=== PATIENT | male | born 1970 | race Caucasian/White ===

== ENCOUNTER 2017-11-26 06:54 | Emergency (ER) | payer BC ==
[~2017-11-26] VITALS: Ht 175.3 cm; Wt 83.9 kg
[~2017-11-26 06:54] MED LIST: CYCL10TA9 PO; GENT3.5O18 OD; HYDR1TAB PO; IBP600T1 PO; MPR22T TP; NAPR-243 PO; SULF-222 PO; SULF1TAB35 PO; SULF1TAB38 PO; TRM50T PO
[2017-11-26] MEDS ORDERED: NS IV 1000 ML 1,000 ML IV SCH (07:07)
[2017-11-26] MEDS ORDERED: RT-ALBUTEROL/IPRATROPIUM 3 ML (DUONEB) VIAL INH ONE (07:15)
[2017-11-26 07:22] LABS: BASOPHILS % (AUTO) 1 % (0-10); EOSINOPHILS # (AUTO) 0.2 10^3/uL (0.0-0.3); EOSINOPHILS % (AUTO) 3 % (0-10); HEMATOCRIT 45 % (40-54); HEMOGLOBIN 15.9 G/DL (13.3-17.7); LYMPHOCYTES # (AUTO) 1.9 X 10^3 (1.0-4.0); LYMPHOCYTES % (AUTO) 31 % (12-44); MEAN CORPUSCULAR HEMOGLOBIN 31 PG (25-34); MEAN CORPUSCULAR HGB CONC 35 G/DL (32-36); MEAN CORPUSCULAR VOLUME 87 FL (80-99); MEAN PLATELET VOLUME 9.6 FL (7.4-10.4); MONOCYTES # (AUTO) 0.8 X 10^3 (0.0-1.0); MONOCYTES % (AUTO) 13 % (0-12); NEUTROPHILS # (AUTO) 3.2 X 10^3 (1.8-7.8); NEUTROPHILS % (AUTO) 53 % (42-75); PLATELET COUNT 203 10^3/uL (130-400); RED BLOOD COUNT 5.14 10^6/uL (4.35-5.85); RED CELL DISTRIBUTION WIDTH 13.2 % (10.0-14.5); WHITE BLOOD COUNT 6.1 10^3/uL (4.3-11.0)
[2017-11-26] MEDS ORDERED: ONDANSETRON 4 MG/2 ML (SDV) Z0FRAN IVP ONE (07:45)
[2017-11-26 07:47] LABS: ALANINE AMINOTRANSFERASE 47 U/L (0-55); ALKALINE PHOSPHATASE 102 U/L (40-136); BILIRUBIN,TOTAL 0.9 MG/DL (0.1-1.0); BUN/CREATININE RATIO 18; CALCIUM 8.1 MG/DL (8.5-10.1); CARBON DIOXIDE 25 MMOL/L (21-32); CHLORIDE 108 MMOL/L (98-107); CREATININE SERUM 0.91 MG/DL (0.60-1.30); GFR ESTIMATED > 60; GLUCOSE 96 MG/DL (70-105); MAGNESIUM 2.6 MG/DL (1.8-2.4); POTASSIUM 3.8 MMOL/L (3.6-5.0); SODIUM 139 MMOL/L (135-145); TOTAL PROTEIN 6.3 GM/DL (6.4-8.2)
--- NOTE | 2017-11-26 07:52 | ED General ---
General Chief Complaint: Cough/Cold/Flu Symptoms Stated Complaint: DOES NOT FEEL GOOD,LIGHT HEADED,BOLAÑOS,COUGH,POSS FEVE Nursing Triage Note: PT AMBULATES TO ROOM 6 PT CO OF COLD COUGH AND FLU SX SINCE TUESDAY, PT STATES HAS HAD CHILLS AT TIMES HAS PROD COUGH. STATES GRANDSON SICK LAST WEEK. PT CO OF SOME CHEST PRESSURE W COUGH HAS HAD OCC DIARRHEA Nursing Sepsis Screen: No Definite Risk Source of Information: Patient Exam Limitations: No Limitations History of Present Illness Date Seen by Provider: Nov 26, 2017 Time Seen by Provider: 07:00 Initial Comments This 47 year old gentleman presents to the ER with cough, lightheadedness, chest tightness, nausea, vomiting and diarrhea since November 23. He could not sleep last night. He has little health history and is a nonsmoker. He has chills but no fever. Allergies and Home Medications Allergies Coded Allergies: SHARLENEANo Known Allergies (Unverified Allergy, Mild, 03/21/07) Home Medications Albuterol Sulfate 1 Puff Puff, 1-4 PUFF IH Q4H PRN for SHORTNESS OF BREATH 1 PUFF = 90 MCG Prescribed by: STEPHANIE MAURER on 11/26/17 0824 Patient Home Medication List Home Medication List Reviewed: Yes Constitutional: see HPI EENTM: no symptoms reported Respiratory: see HPI Cardiovascular: see HPI Gastrointestinal: see HPI Genitourinary: no symptoms reported Musculoskeletal: no symptoms reported Skin: no symptoms reported Psychiatric/Neurological: No Symptoms Reported Hematologic/Lymphatic: No Symptoms Reported Immunological/Allergic: no symptoms reported Past Jucaiqy-Uwujji-Ghhpop Hx Patient Social History Alcohol Use: Denies Use Recreational Drug Use: No Smoking Status: Never a Smoker Recent Foreign Travel: No Contact w/Someone Who Travel: No Recent Infectious Disease Expo: No Recent Hopitalizations: No Physical Abuse: No Sexual Abuse: No Immunizations Up To Date Tetanus Booster (TDap): Less than 5yrs Date of Influenza Vaccine: Jun 29, 2011 Seasonal Allergies Seasonal Allergies: No Surgeries History of Surgeries: No Respiratory History of Respiratory Disorde: No Cardiovascular History of Cardiac Disorders: No Neurological History of Neurological Disord: No Reproductive System Hx Reproductive Disorders: No Gastrointestinal History of Gastrointestinal Di: No Musculoskeletal History of Musculoskeletal Dis: No Endocrine History of Endocrine Disorders: No HEENT History of HEENT Disorders: No Cancer History of Cancer: No Psychosocial History of Psychiatric Problem: No Suicide Risk Score: 0 Integumentary History of Skin or Integumenta: No Blood Transfusions History of Blood Disorders: No Adverse Reaction to a Blood Tr: No Family Medical History Significant Family History: No Pertinent Family Hx Physical Exam Vital Signs Vital Signs - First Documented 11/26/17 07:10 Temp 96.6 Pulse 80 Resp 16 B/P (MAP) 139/96 (110) Pulse Ox 99 O2 Delivery Room Air Capillary Refill : Less Than 3 Seconds General Appearance: WD/WN, Mild Distress HEENT: PERRL/EOMI, Normal ENT Inspection, Pharynx Normal, TM Abnormal (R) ( cerumen impaction) Neck: Normal Inspection Respiratory: Lungs Clear, Normal Breath Sounds, No Accessory Muscle Use, No Respiratory Distress, Decreased Breath Sounds, Other (delayed expiratory phase) Cardiovascular: Regular Rate, Rhythm, No Edema, No Murmur Gastrointestinal: Normal Bowel Sounds, Non Tender, Soft Extremity: Normal Inspection, No Pedal Edema Neurologic/Psychiatric: Alert, Oriented x3, No Motor/Sensory Deficits, Normal Mood/Affect, manager linux II-XII Norm as Tested Skin: Normal Color, Warm/Dry Progress/Results/Core Measures Suspected Sepsis Recent Fever Within 48 Hours: No Infection Criteria Present: None New/Unexplained Altered Menta: No Sepsis Screen: No Definite Risk Sepsis Diagnosis: SIRS Temperature:96.6 Pulse: 80 Respiratory Rate: 16 Laboratory Tests 11/26/17 07:15: White Blood Count 6.1 Blood Pressure 139 /96 Mean: 110 Laboratory Tests 11/26/17 07:15: Creatinine 0.91, Platelet Count 203, Total Bilirubin 0.9 Results/Orders Lab Results Laboratory Tests Test 11/26/17 07:15 Range/Units White Blood Count 6.1 4.3-11.0 10^3/uL Red Blood Count 5.14 4.35-5.85 10^6/uL Hemoglobin 15.9 13.3-17.7 G/DL Hematocrit 45 40-54 % Mean Corpuscular Volume 87 80-99 FL Mean Corpuscular Hemoglobin 31 25-34 PG Mean Corpuscular Hemoglobin Concent 35 32-36 G/DL Red Cell Distribution Width 13.2 10.0-14.5 % Platelet Count 203 130-400 10^3/uL Mean Platelet Volume 9.6 7.4-10.4 FL Neutrophils (%) (Auto) 53 42-75 % Lymphocytes (%) (Auto) 31 12-44 % Monocytes (%) (Auto) 13 H 0-12 % Eosinophils (%) (Auto) 3 0-10 % Basophils (%) (Auto) 1 0-10 % Neutrophils # (Auto) 3.2 1.8-7.8 X 10^3 Lymphocytes # (Auto) 1.9 1.0-4.0 X 10^3 Monocytes # (Auto) 0.8 0.0-1.0 X 10^3 Eosinophils # (Auto) 0.2 0.0-0.3 10^3/uL Basophils # (Auto) 0.0 0.0-0.1 10^3/uL Sodium Level 139 135-145 MMOL/L Potassium Level 3.8 3.6-5.0 MMOL/L Chloride Level 108 H 98-107 MMOL/L Carbon Dioxide Level 25 21-32 MMOL/L Anion Gap 6 5-14 MMOL/L Blood Urea Nitrogen 16 7-18 MG/DL Creatinine 0.91 0.60-1.30 MG/DL Estimat Glomerular Filtration Rate > 60 BUN/Creatinine Ratio 18 Glucose Level 96 70-105 MG/DL Calcium Level 8.1 L 8.5-10.1 MG/DL Magnesium Level 2.6 H 1.8-2.4 MG/DL Total Bilirubin 0.9 0.1-1.0 MG/DL Aspartate Amino Transf (AST/SGOT) 35 H 5-34 U/L Alanine Aminotransferase (ALT/SGPT) 47 0-55 U/L Alkaline Phosphatase 102 40-136 U/L Troponin I < 0.30 <0.30 NG/ML Total Protein 6.3 L 6.4-8.2 GM/DL Albumin 4.0 3.2-4.5 GM/DL Micro Results Microbiology 11/26/17 Influenza Types A,B Antigen (MYKE) - Final, Complete My Orders Orders - STEPHANIE GROSS MD Cbc With Automated Diff (11/26/17 07:07) Comprehensive Metabolic Panel (11/26/17 07:07) Magnesium (11/26/17 07:07) Troponin I (11/26/17 07:07) Influenza A And B Antigens (11/26/17 07:07) Ekg Tracing (11/26/17 07:07) Monitor-Rhythm Ecg Trace Only (11/26/17 07:07) Chest Pa/Lat (2 View) (11/26/17 07:07) Albuterol/Ipra Inhalation Soln (Duoneb I (11/26/17 07:15) Svn Sm Volume Nebulizer Rt-Rfs (11/26/17 07:07) Saline Lock/Iv-Start (11/26/17 07:07) Ns Iv 1000 Ml (Sodium Chloride 0.9%) (11/26/17 07:07) Ondansetron Injection (Zofran Injectio (11/26/17 07:45) Medications Given in ED Current Medications Medications Dose Ordered Sig/Gerber Route Start Time Stop Time Status Last Admin Dose Admin Albuterol/ Ipratropium 3 ml ONCE ONCE INH 11/26/17 07:15 11/26/17 07:16 DC 11/26/17 07:20 3 ML Ondansetron HCl 4 mg ONCE ONCE IVP 11/26/17 07:45 11/26/17 07:46 DC 11/26/17 07:45 4 MG Vital Signs/I&O Vital Sign - Last 12Hours 11/26/17 11/26/17 11/26/17 07:10 07:10 07:20 Temp 96.6 Pulse 80 Resp 16 B/P (MAP) 139/96 (110) Pulse Ox 99 98 O2 Delivery Room Air Room Air Capillary Refill : Less Than 3 Seconds Blood Pressure Mean: 110 Progress Note : Progress Note Patient was seen and examined. IV fluids were ordered along with labs. Because of chest tightness EKG and troponin were also ordered. DuoNeb treatment was administered with some improvement. Influenza screen was negative. EKG, troponin, and chest x-ray were all normal. ECG Initial ECG Impression Date: Nov 26, 2017 Initial ECG Impression Time: 07:05 Initial ECG Rate: 74 Initial ECG Rhythm: Normal Sinus Initial ECG Intervals: Normal Initial ECG Impression: Normal Comment Normal sinus rhythm with no ST elevation or depression. No abnormal intervals or axis deviation. Diagnostic Imaging Diagonstic Imaging: Xray Plain Films/CT/US/NM/MRI: chest Comments Chest x-ray viewed by me and report reviewed. See report below: NAME: UMA KING [facility] REC#: [id number] PT STATUS: REG ER : 1970 PHYSICIAN: STEPHANIE GROSS MD ADMIT DATE: 11/26/17/ER Draft Date of Exam:11/26/17 CHEST PA/LAT (2 VIEW) INDICATION: Cough and congestion COMPARISON: 07/05/2011 FINDINGS: Frontal and lateral views of the chest demonstrate clear lungs bilaterally. The heart is normal. There is no pneumothorax. The osseous structures are age-appropriate. IMPRESSION: Negative chest. Dictated on workstation # [id number] Dict: 11/26/17 0745 Trans: 11/26/17 0757 [facility] [id number] Interpreted by: DEJA MILLER Departure Impression Impression: Primary Impression: Influenza-like symptoms Additional Impressions: Nausea vomiting and diarrhea Acute bronchitis Qualified Codes: J20.9 - Acute bronchitis, unspecified Lightheadedness Impacted cerumen, right ear Disposition: HOME, SELF-CARE Condition: Improved Departure-Patient Inst. Decision time for Depature: 08:10 Referrals: NO,LOCAL PHYSICIAN (PCP/Family) Primary Care Physician Patient Instructions: Acute Bronchitis, Adult (DC) Add. Discharge Instructions: Drink plenty of clear liquids. Gradually advance her diet with small quantities of bland foods as tolerated. Use your inhaler as prescribed for shortness of breath or uncontrolled coughing. You may use Tessalon Perles as prescribed for coughing or use [id number] cough medications containing DM (dextromethorphan). You may use Tylenol (acetaminophen) and/or ibuprofen for pain or aches. Follow-up with your primary care provider on Tuesday. Return to the ER if symptoms are worsening. All discharge instructions reviewed with patient and/or family. Voiced understanding. Scripts Benzonatate (Benzonatate) 200 Mg Capsule 200 MG PO TID Y for COUGH, #20 CAP Prov: STEPHANIE GROSS MD 11/26/17 Ondansetron (Zofran Odt) 4 Mg Tab.rapdis 4 MG SL Q4H Y for NAUSEA/VOMITING-1ST LINE, #10 TAB Prov: STEPHANIE GROSS MD 11/26/17 Albuterol Sulfate (PROAIR HFA) 1 Puff Puff 1-4 PUFF IH Q4H Y for SHORTNESS OF BREATH, #1 PUFF 1 PUFF = 90 MCG Prov: STEPHANIE GROSS MD 11/26/17 Work/School Note: Work Release Form Date Seen in the Emergency Department: Nov 26, 2017 Return to Work: Nov 27, 2017 Restrictions: Return-No Fever (24hrs) STEPHANIE GROSS MD Nov 26, 2017 07:52
--- NOTE | 2017-11-26 07:58 | Diagnostic Imaging Report ---
INDICATION: Cough and congestion COMPARISON: 07/05/2011 FINDINGS: Frontal and lateral views of the chest demonstrate clear lungs bilaterally. The heart is normal. There is no pneumothorax. The osseous structures are age-appropriate. IMPRESSION: Negative chest. Dictated by: Dictated on workstation # [id number]
[2017-11-26] MEDS ORDERED: RT-ALBUINH IH (08:24)
[2017-11-26] MEDS ORDERED: ONDA4TAB8 SL (08:26)
[2017-11-26] MEDS ORDERED: BENZ200C51 PO (08:27)
[2017-11-26 08:33] VITALS: BP 122/71
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
== END 2017-11-26 08:33 | disposition home or self-care (01) ==
LOC: EDUNIT# 06:54 → ER 06:56
DX: J11.1 Influenza due to unidentified influenza virus with other respiratory manifestations (principal); R11.2 Nausea with vomiting, unspecified; R19.7 Diarrhea, unspecified; J20.9 Acute bronchitis, unspecified; R42 Dizziness and giddiness; H61.21 Impacted cerumen, right ear
CPT/HCPCS: 36415; 71046; 80053; 83735; 84484; 85025; 87804; 93005; 93041; 94640; 96361; 96374

== ENCOUNTER 2018-10-08 06:19 | Emergency (ER) | payer BC ==
[~2018-10-08] VITALS: Ht 175.3 cm; Wt 93.0 kg
[~2018-10-08 06:19] MED LIST changes: +BENZ200C51 PO; +ONDA4TAB8 SL; +RT-ALBUINH IH
--- NOTE | 2018-10-08 06:58 | ED Lower Extremity ---
General Chief Complaint: Lower Extremity Stated Complaint: RT KNEE PAIN Nursing Triage Note: RIGHT KNEE PAIN Nursing Sepsis Screen: No Definite Risk Source: patient Exam Limitations: no limitations History of Present Illness Date Seen by Provider: Oct 08, 2018 Time Seen by Provider: 06:54 Initial Comments This 48-year-old white male presents after sustaining an injury to his right knee 2 days ago when he slipped and fell on the ice. Patient denies other injury and his accident. He has been able to weight-bear but has had continued pain in the right knee. Patient's mechanism of injury was described as a valgus stress to the knee. The patient's pain is over the medial tibial plateau. He denies loss of sensation or range of motion affected extremity. He denies previous injury to the left knee. The patient's pain is severe, sharp in nature, and made worse with weightbearing. Allergies and Home Medications Allergies Coded Allergies: NKANo Known Allergies (Unverified Allergy, Mild, 03/21/07) Home Medications No Active Prescriptions or Reported Meds Patient Home Medication List Home Medication List Reviewed: Yes Review of Systems Constitutional: no symptoms reported EENTM: no symptoms reported Respiratory: No cough Cardiovascular: No chest pain Gastrointestinal: No abdominal pain, No nausea, No vomiting Genitourinary: no symptoms reported Musculoskeletal: see HPI; No back pain; joint pain Skin: No change in color (right knee), No rash Psychiatric/Neurological: No Symptoms Reported Past Vsykews-Nuckgo-Vtyzpi Hx Past Med/Social Hx: Reviewed Nursing Past Med/Soc Hx Patient Social History Alcohol Use: Denies Use Recreational Drug Use: No Smoking Status: Never a Smoker 2nd Hand Smoke Exposure: No Recent Foreign Travel: No Contact w/Someone Who Travel: No Recent Infectious Disease Expo: No Recent Hopitalizations: No Immunizations Up To Date Tetanus Booster (TDap): Less than 5yrs Date of Influenza Vaccine: Jun 29, 2011 Seasonal Allergies Seasonal Allergies: No Past Medical History Surgeries: No Respiratory: No Cardiac: No Neurological: No Reproductive Disorders: No Genitourinary: No Gastrointestinal: No Musculoskeletal: No Endocrine: No HEENT: No Cancer: No Psychosocial: No Integumentary: No Blood Disorders: No Adverse Reaction/Blood Tranf: No Family Medical History No Pertinent Family Hx Physical Exam Vital Signs Vital Signs - First Documented 10/08/18 06:32 Temp 96.5 Pulse 79 Resp 18 B/P (MAP) 124/94 (104) Pulse Ox 97 O2 Delivery Room Air Capillary Refill : Less Than 3 Seconds Height, Weight, BMI Height: 5'9.00" Weight: 205lbs. oz. 92.613337zs; 27.32 BMI Method:Stated General Appearance: WD/WN, no apparent distress HEENT: normal ENT inspection Neck: full range of motion, supple Cardiovascular: regular rate, rhythm Respiratory: lungs clear Gastrointestinal: normal bowel sounds Hips: bilateral hip non-tender, bilateral hip normal inspection Legs: bilateral leg non-tender, bilateral leg normal inspection Knees: left knee non-tender, left knee normal inspection, left knee normal range of motion; right knee joint effusion, right knee pain, right knee soft tissue tenderness, right knee swelling, right knee other (there was no instability on examination of the cruciates or collaterals and menisci of the right knee.) Ankles: bilateral ankle non-tender, bilateral ankle normal inspection, bilateral ankle normal range of motion, bilateral ankle no evidence of injury Neurologic/Tendon: normal sensation, normal motor functions Neurologic/Psychiatric: no motor/sensory deficits, alert Skin: normal color, warm/dry Progress/Results/Core Measures Results/Orders My Orders Orders - PEGGY GOMES MD Knee, Left, 4 Views Or > (10/08/18 06:53) Vital Signs/I&O 10/08/18 06:32 Temp 96.5 Pulse 79 Resp 18 B/P (MAP) 124/94 (104) Pulse Ox 97 O2 Delivery Room Air Blood Pressure Mean: 104 Progress Progress Note : Time: 07:47 Progress Note Patient declined pain medication. 4 views of the right knee failed to demonstrate evidence of fracture dislocation. Patient had a knee immobilizer applied for comfort. I gave the patient hydrocodone for pain. I recommended a follow-up with his doctor tomorrow. Departure Impression Primary Impression: Knee pain Qualified Codes: M25.561 - Pain in right knee Disposition: 01 HOME, SELF-CARE Condition: Improved Departure-Patient Inst. Decision time for Depature: 07:49 Referrals: [facility] [place],LOCAL PHYSICIAN (PCP) Primary Care Physician Patient Instructions: Knee Sprain (DC) Add. Discharge Instructions: Knee immobilizer. All discharge instructions reviewed with patient and/or family. Voiced understanding. Scripts No Active Prescriptions or Reported Meds PEGGY GOMES MD Oct 08, 2018 06:58
[2018-10-08 07:56] VITALS: BP 124/94
--- NOTE | 2018-10-08 08:23 | Diagnostic Imaging Report ---
Indication: Left knee pain. Time of exam: 7:27 AM Multiple views of the left knee were obtained. Alignment is normal. Joint spaces are well maintained. Articular surfaces are smooth. No fracture, dislocation or effusion is seen. Impression: No acute bony abnormality is detected. Dictated by: Dictated on workstation # [id number]
== END 2018-10-08 07:56 | disposition home or self-care (01) ==
LOC: EDUNIT# 06:19 → ER 06:24
DX: M25.561 Pain in right knee (principal); W00.9XXA Unspecified fall due to ice and snow, initial encounter
CPT/HCPCS: 73564

== ENCOUNTER 2020-04-17 23:25 | Emergency (ER) | payer BC ==
[~2020-04-17] VITALS: Ht 175.3 cm; Wt 95.3 kg
[2020-04-17] MEDS ORDERED: NITROGLYCERIN 0.4 MG SL TABS BTL 25'S SL PRN (23:45)
[2020-04-17 23:49] LABS: BASOPHILS % (AUTO) 0 % (0-10); EOSINOPHILS # (AUTO) 0.1 10^3/uL (0.0-0.3); EOSINOPHILS % (AUTO) 1 % (0-10); HEMATOCRIT 45 % (40-54); HEMOGLOBIN 15.7 G/DL (13.3-17.7); LYMPHOCYTES # (AUTO) 1.9 X 10^3 (1.0-4.0); LYMPHOCYTES % (AUTO) 25 % (12-44); MEAN CORPUSCULAR HEMOGLOBIN 31 PG (25-34); MEAN CORPUSCULAR HGB CONC 35 G/DL (32-36); MEAN CORPUSCULAR VOLUME 88 FL (80-99); MEAN PLATELET VOLUME 10.4 FL (7.4-10.4); MONOCYTES # (AUTO) 0.6 X 10^3 (0.0-1.0); MONOCYTES % (AUTO) 8 % (0-12); NEUTROPHILS # (AUTO) 5.2 X 10^3 (1.8-7.8); NEUTROPHILS % (AUTO) 66 % (42-75); PLATELET COUNT 220 10^3/uL (130-400); RED CELL DISTRIBUTION WIDTH 13.8 % (10.0-14.5); WHITE BLOOD COUNT 7.9 10^3/uL (4.3-11.0)
[2020-04-18 00:10] LABS: ALANINE AMINOTRANSFERASE 22 U/L (0-55); ALKALINE PHOSPHATASE 96 U/L (40-136); BILIRUBIN,TOTAL 0.8 MG/DL (0.1-1.0); BUN/CREATININE RATIO 10; CALCIUM 8.5 MG/DL (8.5-10.1); CARBON DIOXIDE 21 MMOL/L (21-32); CHLORIDE 113 MMOL/L (98-107); CREATININE SERUM 0.87 MG/DL (0.60-1.30); GFR ESTIMATED > 60; GLUCOSE 95 MG/DL (70-105); MAGNESIUM 2.4 MG/DL (1.6-2.4); POTASSIUM 3.1 MMOL/L (3.6-5.0); SODIUM 143 MMOL/L (135-145); TOTAL PROTEIN 6.4 GM/DL (6.4-8.2)
[2020-04-18 00:16] LABS: FIBRIN DEGRADATION PRODUCTS 0.49 UG/ML (0.00-0.49); PROTHROMBIN TIME PATIENT 13.5 SEC (12.2-14.7)
[2020-04-18 00:39] LABS: AMPHETAMINE SCREEN, URINE NEGATIVE (NEGATIVE); BARBITURATE SCREEN URINE NEGATIVE (NEGATIVE); BENZODIAZEPINES SCREEN URINE NEGATIVE (NEGATIVE); CANNABINOID SCREEN, URINE NEGATIVE (NEGATIVE); COCAINE SCREEN URINE NEGATIVE (NEGATIVE); METHADONE STAT NEGATIVE (NEGATIVE); METHAMPHETAMINE SCREEN URINE S NEGATIVE (NEGATIVE); OPIATE SCREEN URINE NEGATIVE (NEGATIVE); OXYCODONE STAT NEGATIVE (NEGATIVE); PROPOXYPHENE STAT NEGATIVE (NEGATIVE); TRICYCLIC ANTIDEPRESSANTS SCRE NEGATIVE (NEGATIVE)
[2020-04-18] MEDS ORDERED: KETOROLAC 30 MG/ML VIAL IVP ONE (01:15)
--- NOTE | 2020-04-18 02:42 | ED Chest Pain ---
General Chief Complaint: Chest Pain Stated Complaint: CHEST PAIN Nursing Triage Note: pt reports chest pain that has been going on for several days. pt was sitting in recliner when the pain started to become severe again. pt reports 4/10 chest pain that is sharp. pts chest is tender when dr pushed on it. pt had tingling in left arm prior to arrival but is now gone. Nursing Sepsis Screen: No Definite Risk Source: patient Exam Limitations: no limitations History of Present Illness Date Seen by Provider: Apr 17, 2020 Time Seen by Provider: 23:30 Initial Comments This 49-year-old man presents to the emergency room via [facility] with complaints of left-sided chest pain that started a few days ago and has been persistent. Tonight it became more intense and he decided to seek help. Patricio szymanski also reported some pain and numbness in the right arm that is now gone. I asked him if that may have been related to the blood pressure cuff. He stated it may have been but he was uncertain. Patient is very clearly tender to palpation in the left chest wall. He denies any other exacerbating or alleviating factors. He has taken no medications for the pain. He denies any other symptoms such as cough, shortness of breath, fever, or pain with inspiration. Patient seems unusually somnolent and resists opening his eyes. He has history of hypertension but he is not presently treated Allergies and Home Medications Allergies Coded Allergies: NKANo Known Allergies (Unverified Allergy, Mild, 03/21/07) Home Medications No Active Prescriptions or Reported Meds Patient Home Medication List Home Medication List Reviewed: Yes Review of Systems Review of Systems Constitutional: no symptoms reported EENTM: No Symptoms Reported Respiratory: No Symptoms Reported Cardiovascular: See HPI Gastrointestinal: No Symptoms Reported Genitourinary: No Symptoms Reported Musculoskeletal: see HPI Skin: no symptoms reported Psychiatric/Neurological: See HPI Endocrine: No Symptoms Reported Hematologic/Lymphatic: No Symptoms Reported Past Gtegelr-Cldlrt-Brbyts Hx Past Med/Social Hx: Reviewed Nursing Past Med/Soc Hx Patient Social History Alcohol Use: Denies Use Recreational Drug Use: No Smoking Status: Current Everyday Smoker 2nd Hand Smoke Exposure: No Recent Foreign Travel: No Contact w/Someone Who Travel: No Recent Infectious Disease Expo: No Recent Hopitalizations: No Immunizations Up To Date Tetanus Booster (TDap): Less than 5yrs Date of Influenza Vaccine: Jun 29, 2011 Seasonal Allergies Seasonal Allergies: No Past Medical History Surgeries: No Respiratory: No Cardiac: Yes Hypertension Neurological: No Reproductive Disorders: No Genitourinary: No Gastrointestinal: No Musculoskeletal: No Endocrine: No HEENT: No Cancer: No Psychosocial: No Integumentary: No Blood Disorders: No Adverse Reaction/Blood Tranf: No Family Medical History No Pertinent Family Hx Physical Exam Vital Signs Vital Signs - First Documented 04/17/20 23:25 Temp 37.2 Pulse 78 Resp 19 B/P (MAP) 129/98 (108) Pulse Ox 97 O2 Delivery Room Air Capillary Refill : Less Than 3 Seconds Height, Weight, BMI Height: 5'9.00" Weight: 205lbs. oz. 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, Other (somnolent, avoids opening his eyes) Skin: Normal Color, Warm/Dry; No Rash Progress/Results/Core Measures Results/Orders Lab Results Laboratory Tests Test 04/17/20 00:06 04/17/20 23:25 04/18/20 01:54 Range/Units Urine Opiates Screen NEGATIVE NEGATIVE Urine Oxycodone Screen NEGATIVE NEGATIVE Urine Methadone Screen NEGATIVE NEGATIVE Urine Propoxyphene Screen NEGATIVE NEGATIVE Urine Barbiturates Screen NEGATIVE NEGATIVE Ur Tricyclic Antidepressants Screen NEGATIVE NEGATIVE Urine Phencyclidine Screen NEGATIVE NEGATIVE Urine Amphetamines Screen NEGATIVE NEGATIVE Urine Methamphetamines Screen NEGATIVE NEGATIVE Urine Benzodiazepines Screen NEGATIVE NEGATIVE Urine Cocaine Screen NEGATIVE NEGATIVE Urine Cannabinoids Screen NEGATIVE NEGATIVE White Blood Count 7.9 4.3-11.0 10^3/uL Red Blood Count 5.09 4.35-5.85 10^6/uL Hemoglobin 15.7 13.3-17.7 G/DL Hematocrit 45 40-54 % Mean Corpuscular Volume 88 80-99 FL Mean Corpuscular Hemoglobin 31 25-34 PG Mean Corpuscular Hemoglobin Concent 35 32-36 G/DL Red Cell Distribution Width 13.8 10.0-14.5 % Platelet Count 220 130-400 10^3/uL Mean Platelet Volume 10.4 7.4-10.4 FL Neutrophils (%) (Auto) 66 42-75 % Lymphocytes (%) (Auto) 25 12-44 % Monocytes (%) (Auto) 8 0-12 % Eosinophils (%) (Auto) 1 0-10 % Basophils (%) (Auto) 0 0-10 % Neutrophils # (Auto) 5.2 1.8-7.8 X 10^3 Lymphocytes # (Auto) 1.9 1.0-4.0 X 10^3 Monocytes # (Auto) 0.6 0.0-1.0 X 10^3 Eosinophils # (Auto) 0.1 0.0-0.3 10^3/uL Basophils # (Auto) 0.0 0.0-0.1 10^3/uL Prothrombin Time 13.5 12.2-14.7 SEC INR Comment 1.0 0.8-1.4 Activated Partial Thromboplast Time 26 24-35 SEC D-Dimer 0.49 0.00-0.49 UG/ML Sodium Level 143 135-145 MMOL/L Potassium Level 3.1 L 3.6-5.0 MMOL/L Chloride Level 113 H 98-107 MMOL/L Carbon Dioxide Level 21 21-32 MMOL/L Anion Gap 9 5-14 MMOL/L Blood Urea Nitrogen 9 7-18 MG/DL Creatinine 0.87 0.60-1.30 MG/DL Estimat Glomerular Filtration Rate > 60 BUN/Creatinine Ratio 10 Glucose Level 95 70-105 MG/DL Calcium Level 8.5 8.5-10.1 MG/DL Corrected Calcium 8.5 8.5-10.1 MG/DL Magnesium Level 2.4 1.6-2.4 MG/DL Total Bilirubin 0.8 0.1-1.0 MG/DL Aspartate Amino Transf (AST/SGOT) 16 5-34 U/L Alanine Aminotransferase (ALT/SGPT) 22 0-55 U/L Alkaline Phosphatase 96 40-136 U/L Myoglobin 34.1 10.0-92.0 NG/ML Troponin I < 0.028 < 0.028 <0.028 NG/ML Total Protein 6.4 6.4-8.2 GM/DL Albumin 4.0 3.2-4.5 GM/DL Serum Alcohol < 10 <10 MG/DL My Orders Orders - STEPHANIE GROSS MD Cbc With Automated Diff (04/17/20 23:41) Magnesium (04/17/20 23:41) Chest 1 View, Ap/Pa Only (04/17/20:) Ekg Tracing (04/17/20:) Comprehensive Metabolic Panel (04/17/20:) Myoglobin Serum (04/17/20:) Protime With Inr (04/17/20:) Partial Thromboplastin Time (04/17/20:) O2 (04/17/20:) Monitor-Rhythm Ecg Trace Only (04/17/20:) Lipid Panel (04/18/20 06:00) Ed Iv/Invasive Line Start (04/17/20:41) Troponin I (04/17/20:41) Nitroglycerin 0.4 Mg Btl 25's (Nitrostat (04/17/20 23:45) Alcohol (04/17/20 23:41) Drug Screen Stat (Urine) (04/17/20:41) Fibrin Degradation Products (04/17/20 23:25) Troponin I (04/18/20 01:30) Ketorolac Injection (Toradol Injection) (04/18/20 01:15) Potassium Chloride (Tablet) (Klor Con Ta (04/18/20 02:45) Medications Given in ED Current Medications Medications Dose Ordered Sig/Gerber Route Start Time Stop Time Status Last Admin Dose Admin Ketorolac Tromethamine 15 mg ONCE ONCE IVP 04/18/20 01:15 04/18/20 01:16 DC 04/18/20 01:12 15 MG Vital Signs/I&O 04/17/20 04/17/20 23:25 23:25 Temp 37.2 Pulse 78 Resp 19 B/P (MAP) 129/98 (108) Pulse Ox 97 O2 Delivery Room Air Blood Pressure Mean: 108 Progress Progress Note : Progress Note Symptoms were felt to be atypical or musculoskeletal in nature as he had significant tenderness to palpation. Cardiopulmonary workup was negative including a repeat troponin. Patient had been given aspirin by EMS. No nitroglycerin was given due to his blood pressure. Toradol was administered which reduced his pain to 1/10 from his maximum of 5/10. Patient was ultimately dismissed home and advised to have close outpatient follow-up. Potassium was replaced with 20 mEq of oral potassium. Initial ECG Impression Date: Apr 17, 2020 Initial ECG Impression Time: 23:30 Initial ECG Rate: 80 Initial ECG Rhythm: Normal Sinus Initial ECG Intervals: Normal Initial ECG Impression: Normal Comment Normal sinus rhythm with no ST elevation or depression. No abnormal intervals or axis deviation. Diagnostic Imaging Diagonstic Imaging: Xray Plain Films/CT/US/NM/MRI: chest Comments Chest x-ray viewed by me and report reviewed. See report below: NAME: [facility] REC#: [id number] PT STATUS: REG ER : 04/22/1971 PHYSICIAN: STEPHANIE GROSS MD ADMIT DATE: 04/17/20/ER Draft Date of Exam:04/17/20 CT HEAD/CERVICAL SPINE WO INDICATION: Fell, laceration to the back of the head. TECHNIQUE: CT of the head and CT of the cervical spine without contrast. All CT scans use one or more of the following dose optimizing techniques: automated exposure control, MA and/or KvP adjustment based on patient size and exam type or iterative reconstruction. COMPARISON STUDY: None. FINDINGS: CT head: Noncontrast CT scanning of the head demonstrates no mass effect, midline shift, hemorrhage or extra-axial fluid collection. The melton-white matter differentiation is normal. The ventricles, cortical sulci and basilar cisterns appear normal. A punctate calcification is present in the right temporal lobe on axial image 13 and coronal image 42. Osseous structures are normal. CT cervical spine: Noncontrast CT scanning of the cervical spine demonstrates no fracture or subluxation. Soft tissues appear normal. Degenerative changes are present. The C4-C5 level demonstrates posterior osteophytes with mild central stenosis. C5-C6 level demonstrates fusion of the vertebrae. Osteophytic ridging is present with mild to moderate narrowing of the right neural foramina. IMPRESSION: 1. CT scan of the head demonstrates punctate calcification in the left temporal lobe with no acute finding. 2. Degenerative change is present in the cervical spine with no acute finding. Dictated on workstation # [id number] Dict: 04/17/202151 Trans: 04/17/202158 [facility] [id number] Interpreted by: GERARDO BANUELOS MD Departure Impression Primary Impression: Chest wall pain Additional Impression: Hypokalemia Disposition: 01 HOME, SELF-CARE Condition: Improved Departure-Patient Inst. Decision time for Depature: 02:40 Referrals: NO,LOCAL PHYSICIAN (PCP/Family) Primary Care Physician Patient Instructions: Chest Pain That Is Not Caused by the Heart (DC) Add. Discharge Instructions: Drink plenty of clear liquids to stay well-hydrated and eat a well-balanced diet. Follow-up with a primary care provider soon as possible. For pain you may take ibuprofen up to 600 mg every 6 hours as needed and/or Tylenol (acetaminophen) up to 1000 mg every 6 hours as needed. Return to care if you have worsening symptoms. Work toward quitting smoking as rapidly and completely as possible. Seek help from a primary care provider for smoking cessation as needed. All discharge instructions reviewed with patient and/or family. Voiced understanding. Scripts No Active Prescriptions or Reported Meds STEPHANIE GROSS MD Apr 18, 2020 02:42
[2020-04-18] MEDS ORDERED: KCL 10 MEQ TAB (MICRO K) PO ONE (02:45)
[2020-04-18 02:53] VITALS: BP 101/79
--- NOTE | 2020-04-18 06:54 | Diagnostic Imaging Report ---
INDICATION: Chest pain FINDINGS: The lungs are clear. There is no failure, effusion or pneumothorax. IMPRESSION: No acute appearing abnormality. Dictated by: Dictated on workstation # [id number]
== END 2020-04-18 02:53 | disposition home or self-care (01) ==
LOC: EDUNIT# 23:25 → ER 23:27
DX: R07.89 Other chest pain (principal); E87.6 Hypokalemia; F17.200 Nicotine dependence, unspecified, uncomplicated
CPT/HCPCS: 71045; 80053; 80306; 83735; 83874; 84484 ×2; 85025; 85379; 85610; 85730; 93005; 93041; 99284; G0480; 36415; 80320

== ENCOUNTER 2020-05-29 23:03 | Emergency (ER) | payer SELFPAY ==
[~2020-05-29] VITALS: Ht 175 cm; Wt 95.0 kg
[2020-05-29 23:28] LABS: MEAN PLATELET VOLUME 9.9 fL (9.0-12.2); WHITE BLOOD COUNT 8.5 10^3/uL (4.3-11.0)
[2020-05-29 23:48] LABS: CHLORIDE 108 MMOL/L (98-107); POTASSIUM 3.7 MMOL/L (3.6-5.0); SODIUM 140 MMOL/L (135-145)
[2020-05-29 23:49] LABS: CALCIUM 8.5 MG/DL (8.5-10.1)
[2020-05-29 23:50] LABS: GLUCOSE 92 MG/DL (70-105); TOTAL PROTEIN 6.6 GM/DL (6.4-8.2)
[2020-05-29 23:51] LABS: CARBON DIOXIDE 21 MMOL/L (21-32)
[2020-05-29 23:52] LABS: BILIRUBIN,TOTAL 0.7 MG/DL (0.1-1.0)
[2020-05-29 23:54] LABS: ALKALINE PHOSPHATASE 94 U/L (40-136); CREATININE SERUM 1.02 MG/DL (0.60-1.30); GFR ESTIMATED > 60
[2020-05-29 23:55] LABS: BUN/CREATININE RATIO 19
[2020-05-29 23:56] LABS: BILIRUBIN,DIRECT 0.2 MG/DL (0.0-0.3); BILIRUBIN,INDIRECT 0.5 MG/DL
[2020-05-29 23:57] LABS: ALANINE AMINOTRANSFERASE 29 U/L (0-55)
[2020-05-30] MEDS ORDERED: IOHEXOL 350 MG/ML 100 ML (OMNIPAQUE 350) VIAL IV ONE (00:45)
[2020-05-30] MEDS ORDERED: NS 100 ML (IVPB) BAG IV ONE (00:45)
--- NOTE | 2020-05-30 01:17 | NUR ---
C COLLAR OFF AT THIS TIME PER DR. GROSS.
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
[2020-05-30] MEDS ORDERED: KETOROLAC 30 MG/ML VIAL IVP ONE (01:30)
[2020-05-30 01:37] VITALS: BP 108/76
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
--- NOTE | 2020-05-30 07:38 | Diagnostic Imaging Report ---
EXAMINATION: CT Chest, Abdomen and Pelvis with intravenous contrast. TECHNIQUE: Multiple contiguous axial images were obtained through the chest, abdomen and pelvis after the uneventful administration of intravenous contrast. All CT scans use one or more of the following dose optimizing techniques: automated exposure control, MA and/or KvP adjustment based on a patient size and exam type, or iterative reconstruction. HISTORY: Trauma COMPARISON: CT chest, abdomen and pelvis 07/05/2011 FINDINGS: Thyroid: The visualized thyroid gland is normal. Mediastinum: Heart size is normal without significant pericardial effusion. The aorta is normal in caliber. No suspicious lymphadenopathy. Lungs and airways: The lungs are clear without consolidation, pleural effusion, or pneumothorax. Bibasilar dependent atelectasis. Calcified granuloma within the right lower lobe. The airways are normal. Solid organs: Subcentimeter hypodensity within hepatic segment 4A is too small to characterize. Increased size of a left hepatic cyst near the gallbladder fossa measuring 1.8 cm. The gallbladder is normal. There is no biliary ductal dilation. Pancreas is normal. Multiple calcified granulomas within the spleen. Adrenal glands are normal. The kidneys are normal without hydronephrosis. A right renal cyst is present (no followup is indicated). Bowel: The stomach and small bowel are normal without obstruction. The colon and appendix are normal. Peritoneum: There is no intraperitoneal free fluid or free air. No suspicious lymphadenopathy. Vasculature: Normal without aneurysm. Musculoskeletal: No suspicious osseous lesion or compression fracture. No acute fracture. Pelvis: The prostate gland is normal. The urinary bladder is normal. IMPRESSION: 1. No acute abnormality in the chest, abdomen, or pelvis. 2. Agree with preliminary interpretation. Dictated by: Dictated on workstation # [id number]
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
== END 2020-05-30 01:41 | disposition home or self-care (01) ==
LOC: ER 23:03 → EDUNIT# 23:03 → ER 05-30 01:41
DX: S20.211A Contusion of right front wall of thorax, initial encounter (principal); S30.1XXA Contusion of abdominal wall, initial encounter; S80.01XA Contusion of right knee, initial encounter; I10 Essential (primary) hypertension; R40.2142 Coma scale, eyes open, spontaneous, at arrival to emergency department; R40.2252 Coma scale, best verbal response, oriented, at arrival to emergency department; R40.2362 Coma scale, best motor response, obeys commands, at arrival to emergency department; F17.200 Nicotine dependence, unspecified, uncomplicated; Z20.828 Contact with and (suspected) exposure to other viral communicable diseases; V89.2XXA Person injured in unspecified motor-vehicle accident, traffic, initial encounter
CPT/HCPCS: 70450; 71260; 72125; 73552; 73562; 74177; 80048; 80076; 85027; 99284; G0480; U0002; 36415; 80320; 87635

== ENCOUNTER 2020-10-28 06:51 | Observation (INO) | payer BC ==
[~2020-10-28] VITALS: Ht 175.3 cm; Wt 78.6 kg
[2020-10-28] MEDS ORDERED: RT-ALBUTEROL INHALER HFA (VENTOLIN HFA) 18 GM IH ONE (07:16)
[2020-10-28 07:30] LABS: BASOPHILS % (AUTO) 1 % (0-10); EOSINOPHILS # (AUTO) 0.1 10^3/uL (0.0-0.3); EOSINOPHILS % (AUTO) 2 % (0-10); HEMATOCRIT 48 % (40-54); HEMOGLOBIN 16.1 g/dL (13.3-17.7); LYMPHOCYTES # (AUTO) 1.5 10^3/uL (1.0-4.0); LYMPHOCYTES % (AUTO) 28 % (12-44); MEAN CORPUSCULAR HEMOGLOBIN 30 pg (25-34); MEAN CORPUSCULAR HGB CONC 34 g/dL (32-36); MEAN CORPUSCULAR VOLUME 89 fL (80-99); MEAN PLATELET VOLUME 9.3 fL (9.0-12.2); MONOCYTES # (AUTO) 0.4 10^3/uL (0.0-1.0); MONOCYTES % (AUTO) 8 % (0-12); NEUTROPHILS # (AUTO) 3.3 10^3/uL (1.8-7.8); NEUTROPHILS % (AUTO) 61 % (42-75); PLATELET COUNT 205 10^3/uL (130-400); WHITE BLOOD COUNT 5.3 10^3/uL (4.3-11.0)
[2020-10-28] MEDS ORDERED: NITROGLYCERIN 0.4 MG SL TABS BTL 25'S SL PRN (07:30)
[2020-10-28] MEDS ORDERED: fentaNYL INJECTION 100 MCG/2 ML AMP IVP ONE (07:30)
[2020-10-28] MEDS ORDERED: ASPIRIN 81 MG CHEW (CHILDREN'S ASA) PO ONE (07:30)
[2020-10-28] MEDS ORDERED: LACTATED RINGERS 1,000 ML IV ONE ×2 (07:39→07:45)
[2020-10-28 07:41] LABS: ALBUMIN 4.1 GM/DL (3.2-4.5)
[2020-10-28 07:42] LABS: CHLORIDE 112 MMOL/L (98-107); POTASSIUM 3.7 MMOL/L (3.6-5.0); SODIUM 142 MMOL/L (135-145)
[2020-10-28 07:43] LABS: CALCIUM 8.5 MG/DL (8.5-10.1); PROTHROMBIN TIME PATIENT 13.8 SEC (12.2-14.7)
[2020-10-28 07:44] LABS: GLUCOSE 103 MG/DL (70-105); TOTAL PROTEIN 6.9 GM/DL (6.4-8.2)
[2020-10-28 07:45] LABS: CARBON DIOXIDE 22 MMOL/L (21-32)
[2020-10-28 07:46] LABS: BILIRUBIN,TOTAL 1.4 MG/DL (0.1-1.0)
[2020-10-28 07:47] LABS: ALKALINE PHOSPHATASE 93 U/L (40-136)
[2020-10-28 07:48] LABS: CREATININE SERUM 0.96 MG/DL (0.60-1.30); GFR ESTIMATED > 60
[2020-10-28 07:49] LABS: BUN/CREATININE RATIO 15
[2020-10-28 07:51] LABS: ALANINE AMINOTRANSFERASE 26 U/L (0-55); MAGNESIUM 2.5 MG/DL (1.6-2.4)
--- NOTE | 2020-10-28 08:04 | ED Chest Pain ---
General Chief Complaint: Abdominal/GI Problems Stated Complaint: CHEST TIGHTNESS,BOLAÑOS,DIARRHEA X 3DAYS Nursing Triage Note: PT AMB TO ROOM 8 PT CO OF BOLAÑOS 6/10, DIARRHEA , AND CHEST TIGHTNESS 8/10 STARTED APPROX 3 DAYS AGO, PT DENIES NAUSEA, FEVER, COUGH OR LOSS OF TASTE AND SMELL Nursing Sepsis Screen: No Definite Risk Source: patient Exam Limitations: no limitations History of Present Illness Date Seen by Provider: Oct 28, 2020 Time Seen by Provider: 07:00 Initial Comments This 50-year-old gentleman presents to the emergency room with complaints of chest tightness, diarrhea, shortness of breath, and headache. He denies any fever, cough, sore throat, or change in taste/smell. Symptoms have been ongoing for the past 3 days. He appears fairly uncomfortable on arrival. Vital signs are normal. He denies any known history of cardiopulmonary problems. He is a smoker. He denies any Covid exposures. He took 3 Aleve tablets this morning around 05:00 without notable improvement. Allergies and Home Medications Allergies Coded Allergies: NKANo Known Allergies (Unverified Allergy, Mild, 03/21/07) Home Medications No Active Prescriptions or Reported Meds Patient Home Medication List Home Medication List Reviewed: Yes Review of Systems Review of Systems Constitutional: no symptoms reported EENTM: No Symptoms Reported Respiratory: See HPI Cardiovascular: See HPI Gastrointestinal: No Symptoms Reported Genitourinary: No Symptoms Reported Musculoskeletal: no symptoms reported Skin: no symptoms reported Psychiatric/Neurological: No Symptoms Reported Endocrine: No Symptoms Reported Hematologic/Lymphatic: No Symptoms Reported Past Mrpxbtn-Vazohe-Fzeikw Hx Past Med/Social Hx: Reviewed Nursing Past Med/Soc Hx Patient Social History 2nd Hand Smoke Exposure: No Recent Infectious Disease Expo: No Recent Hopitalizations: No Immunizations Up To Date Tetanus Booster (TDap): Less than 5yrs Date of Influenza Vaccine: Jun 29, 2011 Seasonal Allergies Seasonal Allergies: No Past Medical History Surgeries: No Respiratory: No Cardiac: Yes Hypertension Neurological: No Reproductive Disorders: No Genitourinary: No Gastrointestinal: No Musculoskeletal: No Endocrine: No HEENT: No Cancer: No Psychosocial: No Integumentary: No Blood Disorders: No Adverse Reaction/Blood Tranf: No Family Medical History No Pertinent Family Hx Physical Exam Vital Signs Vital Signs - First Documented 10/28/20 07:10 Temp 36.0 Pulse 83 Resp 20 B/P (MAP) 147/106 (120) Pulse Ox 93 O2 Delivery Room Air Capillary Refill : Less Than 3 Seconds Height, Weight, BMI Height: 5'9.00" Weight: 205lbs. oz. 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 Norm as Tested Skin: Normal Color, Warm/Dry Progress/Results/Core Measures Results/Orders Lab Results Laboratory Tests Test 10/28/20 07:15 10/28/20 07:25 Range/Units Coronavirus 2019 ([place]) Negative Negative White Blood Count 5.3 4.3-11.0 10^3/uL Red Blood Count 5.39 4.30-5.52 10^6/uL Hemoglobin 16.1 13.3-17.7 g/dL Hematocrit 48 40-54 % Mean Corpuscular Volume 89 80-99 fL Mean Corpuscular Hemoglobin 30 25-34 pg Mean Corpuscular Hemoglobin Concent 34 32-36 g/dL Red Cell Distribution Width 13.2 10.0-14.5 % Platelet Count 205 130-400 10^3/uL Mean Platelet Volume 9.3 9.0-12.2 fL Immature Granulocyte % (Auto) 0 % Neutrophils (%) (Auto) 61 42-75 % Lymphocytes (%) (Auto) 28 12-44 % Monocytes (%) (Auto) 8 0-12 % Eosinophils (%) (Auto) 2 0-10 % Basophils (%) (Auto) 1 0-10 % Neutrophils # (Auto) 3.3 1.8-7.8 10^3/uL Lymphocytes # (Auto) 1.5 1.0-4.0 10^3/uL Monocytes # (Auto) 0.4 0.0-1.0 10^3/uL Eosinophils # (Auto) 0.1 0.0-0.3 10^3/uL Basophils # (Auto) 0.0 0.0-0.1 10^3/uL Immature Granulocyte # (Auto) 0.0 0.0-0.1 10^3/uL Prothrombin Time 13.8 12.2-14.7 SEC INR Comment 1.0 0.8-1.4 Activated Partial Thromboplast Time 28 24-35 SEC D-Dimer 0.37 0.00-0.49 UG/ML Sodium Level 142 135-145 MMOL/L Potassium Level 3.7 3.6-5.0 MMOL/L Chloride Level 112 H 98-107 MMOL/L Carbon Dioxide Level 22 21-32 MMOL/L Anion Gap 8 5-14 MMOL/L Blood Urea Nitrogen 14 7-18 MG/DL Creatinine 0.96 0.60-1.30 MG/DL Estimat Glomerular Filtration Rate > 60 BUN/Creatinine Ratio 15 Glucose Level 103 70-105 MG/DL Calcium Level 8.5 8.5-10.1 MG/DL Corrected Calcium 8.4 L 8.5-10.1 MG/DL Magnesium Level 2.5 H 1.6-2.4 MG/DL Total Bilirubin 1.4 H 0.1-1.0 MG/DL Aspartate Amino Transf (AST/SGOT) 19 5-34 U/L Alanine Aminotransferase (ALT/SGPT) 26 0-55 U/L Alkaline Phosphatase 93 40-136 U/L Lactate Dehydrogenase 190 125-220 U/L Myoglobin 26.3 10.0-92.0 NG/ML Troponin I < 0.028 <0.028 NG/ML C-Reactive Protein High Sensitivity 0.12 0.00-0.50 MG/DL Total Protein 6.9 6.4-8.2 GM/DL Albumin 4.1 3.2-4.5 GM/DL Procalcitonin 0.02 <0.10 NG/ML Micro Results Microbiology 10/28/20 Influenza Types A,B Antigen (MYKE) - Final, Complete My Orders Orders - STEPHANIE GROSS MD Influenza A And B Antigens (10/28/20 07:00) Covid 19 Inhouse Test (10/28/20 07:00) Cbc With Automated Diff (10/28/20 07:16) Magnesium (10/28/20 07:16) Chest 1 View, Ap/Pa Only (10/28/20 07:16) Ekg Tracing (10/28/20 07:16) Comprehensive Metabolic Panel (10/28/20 07:16) Myoglobin Serum (10/28/20 07:16) Protime With Inr (10/28/20 07:16) Partial Thromboplastin Time (10/28/20 07:16) O2 (10/28/20 07:16) Monitor-Rhythm Ecg Trace Only (10/28/20 07:16) Lipid Panel (10/29/20 06:00) Ed Iv/Invasive Line Start (10/28/20 07:16) Nitroglycerin 0.4 Mg Btl 25's (Nitrostat (10/28/20 07:30) Aspirin Chewable Tablet (Baby Aspirin Ch (10/28/20 07:30) Fentanyl Injection (Sublimaze Injection (10/28/20 07:30) Albuterol Inhaler (Ventolin Hfa) (10/28/20 10:00) Fibrin Degradation Products (10/28/20 07:18) Albuterol Inhaler (Ventolin Hfa) (10/28/20 07:16) Hs C Reactive Protein (10/28/20 07:25) LDH (10/28/20 07:25) Procalcitonin (Pct) (10/28/20 07:25) Troponin I (10/28/20 07:25) Lactated Ringers (Lr 1000 Ml Iv Solution (10/28/20 07:45) Lactated Ringers (Lr 1000 Ml Iv Solution (10/28/20 07:39) Coronavirus Sars-Cov-2 So 2018 (10/28/20 08:49) Enoxaparin Injection (Lovenox Injection) (10/28/20 09:00) Pantoprazole Tablet (Protonix Tablet) (10/28/20 09:00) Medications Given in ED Current Medications Medications Dose Ordered Sig/Gerber Route Start Time Stop Time Status Last Admin Dose Admin Aspirin 324 mg ONCE ONCE PO 10/28/20 07:30 10/28/20 07:31 DC 10/28/20 07:27 324 MG Fentanyl Citrate 50 mcg ONCE ONCE IVP 10/28/20 07:30 10/28/20 07:31 DC 10/28/20 07:42 50 MCG Lactated Ringer's 1,000 ml @ 0 mls/hr Q0M ONCE IV 10/28/20 07:45 10/28/20 07:46 DC 10/28/20 07:46 100 MLS/HR Nitroglycerin 0.4 mg UD PRN SL 10/28/20 07:30 10/28/20 07:28 0.4 MG Vital Signs/I&O 10/28/20 07:10 Temp 36.0 Pulse 83 Resp 20 B/P (MAP) 147/106 (120) Pulse Ox 93 O2 Delivery Room Air Blood Pressure Mean: 120 Progress Progress Note #1: Time: 07:59 Progress Note Patient received aspirin and 2 doses of nitroglycerin. This reduced his pain from about 7/10 down to 3/10. He was additionally given an albuterol inhaler which helped his shortness of breath some. Fentanyl is now being given for headache. Work-up so far has been unremarkable. Rapid Covid and influenza were both negative. He is receiving a liter of LR. Progress Note #2: Time: 09:19 Progress Note Patient had minimal residual chest tightness after treatment. Work-up was essentially unremarkable. Because of his risk factors including smoking and history of early heart disease in his mother, Dr. Stringer and I believe admission is appropriate. Dr. Block requested Lovenox, aspirin, Protonix, and n.p.o. diet after midnight. I discussed admission with the patient who is agreeable. Initial ECG Impression Date: Oct 28, 2020 Initial ECG Impression Time: 07:16 Initial ECG Rate: 75 Initial ECG Rhythm: Normal Sinus Initial ECG Intervals: Normal Initial ECG Impression: Normal Comment Normal sinus rhythm with no ST elevation or depression. No abnormal intervals or axis deviation. Diagnostic Imaging Diagonstic Imaging: Xray Plain Films/CT/US/NM/MRI: chest Comments Chest x-ray viewed by me and report reviewed. See report below: NAME: UMA [facility] REC#: [id number] PT STATUS: REG ER : 1970 PHYSICIAN: STEPHANIE GROSS MD ADMIT DATE: 10/28/20/ER Draft Date of Exam:10/28/20 CHEST 1 VIEW, AP/PA ONLY EXAMINATION: Chest 1 view HISTORY: Chest pain COMPARISON: 04/17/2020 FINDINGS: There is mild left base linear atelectasis. Otherwise, the lungs are clear without edema or pneumonia. No pleural effusion or pneumothorax. Heart size is normal. IMPRESSION: 1. Mild atelectasis, otherwise clear lungs. Dictated on workstation # [id number] Dict: 10/28/20 0810 Trans: 10/28/20 0821 ABIEL [id number] Interpreted by: GAYATHRI CAMPOS MD Departure Communication (Admissions) Time/Spoke to Admitting Phy: 00:15 Dr. Monteiro Time/Spoke to Consulting Phy: 08:46 Dr. Stringer Impression Primary Impression: Chest tightness Additional Impressions: Acute headache Qualified Codes: R51.9 - Headache, unspecified Diarrhea Qualified Codes: R19.7 - Diarrhea, unspecified Person under investigation for COVID-19 Disposition: 09 ADMITTED INPATIENT Condition: Improved Admissions Decision to Admit Reason: Admit from ER (General) Decision to Admit/Date: Oct 28, 2020 Time/Decision to Admit Time: 08:50 Departure-Patient Inst. Referrals: NO,LOCAL PHYSICIAN (PCP/Family) Primary Care Physician Scripts No Active Prescriptions or Reported Meds STEPHANIE GROSS MD Oct 28, 2020 08:04
--- NOTE | 2020-10-28 08:22 | Diagnostic Imaging Report ---
EXAMINATION: Chest 1 view HISTORY: Chest pain COMPARISON: 04/17/2020 FINDINGS: There is mild left base linear atelectasis. Otherwise, the lungs are clear without edema or pneumonia. No pleural effusion or pneumothorax. Heart size is normal. IMPRESSION: 1. Mild atelectasis, otherwise clear lungs. Dictated by: Dictated on workstation # [id number]
[2020-10-28] MEDS ORDERED: ENOXAPARIN 80 MG/0.8 ML (LOVENOX) SYR SC ONE (09:00)
[2020-10-28] MEDS ORDERED: PANTOPRAZOLE 40 MG (PROTONIX) TAB PO ONE (09:00)
[2020-10-28] MEDS ORDERED: RT-ALBUTEROL INHALER HFA (VENTOLIN HFA) 18 GM IH SCH (10:00)
[2020-10-28 10:45] VITALS: BP 108/64
[2020-10-28] MEDS ORDERED: HYDROcodone/APAP 5 MG/325 MG (LORTAB) TAB PO PRN (11:15)
[2020-10-28] MEDS ORDERED: ONDANSETRON 4 MG/2 ML (SDV) Z0FRAN IV PRN (11:15)
[2020-10-28] MEDS ORDERED: RT-ALBUTEROL INHALER HFA (VENTOLIN HFA) 18 GM IH PRN (11:15)
[2020-10-28] MEDS ORDERED: ENOXAPARIN 80 MG/0.8 ML (LOVENOX) SYR SC SCH (21:00)
--- NOTE | 2020-10-28 21:34 | Discharge Summary ---
Discharge Summary Hospital Course Hospital Course Date of Admission: Oct 28, 2020 at 09:10 Admission Diagnosis : Family Physician/Provider: No,Local Physician Date of Discharge: 10/28/20 Discharge Diagnosis: [ ] Hospital Course: [ ] Labs and Pending Lab Test: Laboratory Tests 10/28/20 07:15: Coronavirus (COVID-19)(PCR) Negative, Coronavirus 2019 ([place]) Negative 10/28/20 07:25: White Blood Count 5.3, Red Blood Count 5.39, Hemoglobin 16.1, Hematocrit 48, Mean Corpuscular Volume 89, Mean Corpuscular Hemoglobin 30, Mean Corpuscular Hemoglobin Concent 34, Red Cell Distribution Width 13.2, Platelet Count 205, Mean Platelet Volume 9.3, Immature Granulocyte % (Auto) 0, Neutrophils (%) (Auto) 61, Lymphocytes (%) (Auto) 28, Monocytes (%) (Auto) 8, Eosinophils (%) (Auto) 2, Basophils (%) (Auto) 1, Neutrophils # (Auto) 3.3, Lymphocytes # (Auto) 1.5, Monocytes # (Auto) 0.4, Eosinophils # (Auto) 0.1, Basophils # (Auto) 0.0, Immature Granulocyte # (Auto) 0.0, Prothrombin Time 13.8, INR Comment 1.0, Activated Partial Thromboplast Time 28, D-Dimer 0.37, Sodium Level 142, Potassium Level 3.7, Chloride Level 112H, Carbon Dioxide Level 22, Anion Gap 8, Blood Urea Nitrogen 14, Creatinine 0.96, Estimat Glomerular Filtration Rate > 60, BUN/Creatinine Ratio 15, Glucose Level 103, Calcium Level 8.5, Corrected Calcium 8.4L, Magnesium Level 2.5H, Total Bilirubin 1.4H, Aspartate Amino Transf (AST/SGOT) 19, Alanine Aminotransferase (ALT/SGPT) 26, Alkaline Phosphatase 93, Lactate Dehydrogenase 190, Myoglobin 26.3, Troponin I < 0.028, C-Reactive Protein High Sensitivity 0.12, Total Protein 6.9, Albumin 4.1, Procalcitonin 0.02 10/28/20 13:25: Troponin I < 0.028 Microbiology 10/28/20 Influenza Types A,B Antigen (MYKE) - Final, Complete Home Meds Active No Active Prescriptions or Reported Medications Discharge Physical Examination Vital Signs Vital Signs Date Time Temp Pulse Resp B/P (MAP) Pulse Ox O2 Delivery O2 Flow Rate FiO2 10/28/20 12:29 57 10/28/20 11:15 Room Air 98.00 10/28/20 10:45 18 108/64 100 10/28/20 07:10 36.0 Allergies: Coded Allergies: NKANo Known Allergies (Unverified Allergy, Mild, 03/21/07) Discharge Summary Date of Admission Oct 28, 2020 at 09:10 Date of Discharge Oct 28, 2020 at 14:40 YOLANDE SCHOFIELD MD Oct 28, 2020 21:34
[2020-10-29] MEDS ORDERED: PANTOPRAZOLE 40 MG (PROTONIX) TAB PO SCH (09:00)
== END 2020-10-28 14:40 | disposition left against medical advice (07) ==
LOC: EDUNIT# 06:51 → ER 06:54 → UNDOADMOB 09:10 → 4TH 09:10 → UNDODISOB 14:40
PROVIDERS: ADMIT Internal Medicine; ATTEND Internal Medicine
DX: R07.89 Other chest pain (principal); R51.9 Headache, unspecified; R19.7 Diarrhea, unspecified; Z20.822 Contact with and (suspected) exposure to COVID-19
CPT/HCPCS: 71045; 80053; 83615; 83735; 83874; 84145; 84484; 85025; 85379; 85610; 85730; 86141; 87804; 93005; 93041; 99284; G0378; U0002; 36415; 87635